=== PATIENT | male | born 1995 | race Two or more races ===

== ENCOUNTER → 2021-07-07 | Emergency (ER) | payer OTHER ==
[~2021-07-07] VITALS: Ht 180.3 cm; Wt 90.3 kg
[~2021-07-07] MED LIST: MAXITROL EYE DRO5 ML OP
== END | disposition home or self-care (01) ==
LOC: ER 20:08
DX: S01.112A Laceration without foreign body of left eyelid and periocular area, initial encounter (principal); W45.8XXA Other foreign body or object entering through skin, initial encounter; Y93.89 Activity, other specified; Y92.89 Other specified places as the place of occurrence of the external cause; Y99.8 Other external cause status